=== PATIENT | female | born 1950 | race Two or more races ===

== ENCOUNTER 2023-08-28 23:37 | Inpatient (IN) | payer OTHER ==
[2023-08-29 00:36] LABS: BASO % 0.5 % (0-2.0); EOS % 0.2 % (0-4.5); HEMATOCRIT 38.8 % (32.4-45.2); HEMOGLOBIN 12.9 GM/dL (10.7-15.3); LYMPH % 34.1 % (8-40); MCH 29.2 pg (25.7-33.7); MCHC 33.2 g/dl (32.0-36.0); MEAN PLT VOLUME 8.5 fl (7.5-11.1); MONO % 13.9 % (3.8-10.2); NEUT % 51.3 % (42.8-82.8); PLATELET COUNT 186 10^3/uL (134-434); RBC 4.41 M/mm3 (3.60-5.2); RDW 15.6 % (11.6-15.6); WHITE BLOOD COUNT 7.4 K/mm3 (4.0-10.0)
[2023-08-29 00:40] LABS: INR 1.27 (0.83-1.09); PROTHROMBIN TIME (PATIENT) 14.2 SEC (9.7-13.0)
[2023-08-29 00:42] LABS: ACTIVATED PTT 28.3 SECONDS (25.2-36.5)
[2023-08-29 01:04] LABS: CHLORIDE 109 mmol/L (98-107); POTASSIUM 4.1 mmol/L (3.5-5.1); SODIUM 140 mmol/L (136-145)
[2023-08-29 01:05] LABS: CALCIUM 8.3 mg/dL (8.5-10.1)
[2023-08-29 01:06] LABS: ANION GAP 8 mmol/L (4-13); CO2 23 mmol/L (21-32)
[2023-08-29 01:07] LABS: BLOOD UREA NITROGEN 10.6 mg/dL (7-18); GLUCOSE,RANDOM 100 mg/dL (74-106)
[2023-08-29 01:08] LABS: ALBUMIN 3.2 g/dl (3.4-5.0)
[2023-08-29 01:09] LABS: CREATININE 0.8 mg/dL (0.55-1.3); SGOT/AST 24 U/L (15-37); SGPT/ALT 26 U/L (13-61)
[2023-08-29 01:11] LABS: CHOLESTEROL 108 mg/dL (50-200); TOT PROT 6.7 g/dl (6.4-8.2)
[2023-08-29 01:12] LABS: BILIRUBIN,TOTAL 0.6 mg/dL (0.2-1); LDL CHOLESTEROL (ONLY SJRH) 62 mg/dL (5-100)
[2023-08-29 01:13] LABS: ALK PHOS 61 U/L (45-117); HDL CHOLESTEROL 38 mg/dL (40-60)
[2023-08-29] MEDS ORDERED: ACETAMINOPHEN INJECTION 100 ML IVPB ONE (02:45)
[2023-08-29] MEDS ORDERED: LIDOCAINE 4% PATCH TP ONE (02:45)
[2023-08-29] MEDS ORDERED: ASPIRIN 81 MG CHEWABLE TABLETS ONE (02:45)
[2023-08-29] MEDS: ACETAMINOPHEN 1000 MG/100 ML BAG IVPB ONE (03:02)
[2023-08-29] MEDS: ASPIRIN 81 MG CHEWABLE TABLETS PO ONE (03:02)
[2023-08-29] MEDS: LIDOCAINE 4% PATCH TP ONE (03:02)
[2023-08-29 06:41] VITALS: BMI 35.9
[2023-08-29] MEDS: INSULIN ASPART SLIDING SCALE (NOVOLOG) 1 VIAL SQ SCH (07:29)
[2023-08-29 07:42] LABS: POTASSIUM 3.8 mmol/L (3.5-5.1)
[2023-08-29 07:45] LABS: CALCIUM 8.4 mg/dL (8.5-10.1); MAGNESIUM 1.9 mg/dL (1.8-2.4)
[2023-08-29 07:48] LABS: CREATININE 0.8 mg/dL (0.55-1.3)
[2023-08-29 07:49] LABS: PHOSPHOROUS 3.4 mg/dL (2.5-4.9)
[2023-08-29 07:52] LABS: BILIRUBIN,TOTAL 0.8 mg/dL (0.2-1); TOT PROT 6.1 g/dl (6.4-8.2)
[2023-08-29 08:10] LABS: HEMATOCRIT 36.3 % (32.4-45.2); HEMOGLOBIN 12.1 GM/dL (10.7-15.3); MCH 29.2 pg (25.7-33.7); MCHC 33.3 g/dl (32.0-36.0); MEAN CELL VOLUME 87.8 fl (80-96); PLATELET COUNT 177 10^3/uL (134-434); RBC 4.13 M/mm3 (3.60-5.2); RDW 15.5 % (11.6-15.6); WHITE BLOOD COUNT 7.1 K/mm3 (4.0-10.0)
[2023-08-29] MEDS: ENOXAPARIN NA (PORCINE) 40 MG/0.4 ML DISP.SYRIN SQ SCH (10:40)
[2023-08-29] MEDS: amLODIPine BESYLATE 2.5 MG TABLET (FP) PO SCH (10:40)
[2023-08-29] MEDS: CLOPIDOGREL BISULFATE 75 MG TABLET (FP) PO SCH (10:40)
[2023-08-29] MEDS: PREGABALIN 50 MG CAPSULE PO SCH (10:40)
[2023-08-29] MEDS: ASPIRIN COATED 81 MG TABLET.EC PO SCH (10:40)
[2023-08-29] MEDS: POLYETHYLENE GLYCOL (HEALTHYLAX) 3350 17 GM PACKET PO SCH (10:41)
[2023-08-29] MEDS: OLANZapine 10 MG TABLET PO SCH (11:39)
[2023-08-29 16:45] VITALS: BP 116/60; PULSE 70; RESP 25; TEMP 98.9
[2023-08-29] MEDS ORDERED: LIDOCAINE PATCH REMOVAL MC SCH (22:00)
[2023-08-29] MEDS ORDERED: ATORVASTATIN CA 40 MG TABLET (FP) PO SCH (22:00)
[2023-08-29] MEDS ORDERED: MIRTAZAPINE 30 MG TABLET PO SCH (22:00)
== END 2023-08-29 17:30 | disposition home or self-care (01) | DRG 69 ==
LOC: JER 23:37 → JERBED 08-29 01:50 → J2W 08-29 05:48
PROVIDERS: ADMIT Internal Medicine; ATTEND Internal Medicine
DX: G45.9 Transient cerebral ischemic attack, unspecified (principal); R47.01 Aphasia; G81.91 Hemiplegia, unspecified affecting right dominant side; R47.81 Slurred speech; I10 Essential (primary) hypertension; E78.5 Hyperlipidemia, unspecified; F41.9 Anxiety disorder, unspecified; F32.A Depression, unspecified; R47.1 Dysarthria and anarthria; K59.00 Constipation, unspecified; F20.9 Schizophrenia, unspecified; M54.16 Radiculopathy, lumbar region
CPT/HCPCS: 36415; 70450-TC; 70496-TC; 70498-TC; 70551-TC; 80053; 80061; 82550; 82553; 82962; 83036; 83735; 84100; 84484; 85025; 85027; 85610; 85730; 86850; 86900; 86901; 93005; 93010; 97116-GP; 97162-GP; 99291; J0131; Q9967